=== PATIENT | female | born 1995 | race Caucasian/White ===

== ENCOUNTER 2019-05-03 06:54 | Emergency (ER) | payer OTHER ==
[~2019-05-03] VITALS: Ht 162.6 cm; Wt 56.7 kg
--- NOTE | 2019-05-03 07:04 | NUR ---
syncope episode today and stated she hit the left side of her head. patient is alert and oriented x3. Patient states she has been having memory issues. Patient arrived with low BP of 92/55. Patient ambuatory with steady gait. Patient denies any pain/discomfort at this time. patient denies any vision issues or changes.
--- NOTE | 2019-05-03 07:06 | NUR ---
Dr. Lucas at bedside.
--- NOTE | 2019-05-03 07:36 | NUR ---
Report received from ALESSANDRA Talbert.Pt remains awake,alert.Awaiting for CT scan result.
[2019-05-03 07:55] VITALS: BP 98/62
--- NOTE | 2019-05-03 07:59 | NUR ---
Pt was discharged home in stable condition.Discharge instruction given to pt.Verbalized understanding.
== END 2019-05-03 08:00 | disposition home or self-care (01) ==
LOC: ER 07:01
DX: S09.90XA Unspecified injury of head, initial encounter (principal); F12.10 Cannabis abuse, uncomplicated; W01.198A Fall on same level from slipping, tripping and stumbling with subsequent striking against other object, initial encounter; Y93.89 Activity, other specified; Y92.89 Other specified places as the place of occurrence of the external cause; Y99.8 Other external cause status
CPT/HCPCS: 70450; A4663